=== PATIENT | male | born 1975 | race Caucasian/White ===

== ENCOUNTER 2017-11-09 06:24 | Emergency (ER) | payer SELFPAY ==
[~2017-11-09] VITALS: Ht 182.9 cm; Wt 78.5 kg
[2017-11-09 06:27] VITALS: BP 148/75; PULSE 92; RESP 18; TEMP 97.7; O2SAT 99
[2017-11-09] MEDS ORDERED: VANCOMYCIN INJ 200 ML IV ONE (07:15)
[2017-11-09] MEDS ORDERED: LIDOCAINE HCL 2% 50 ML VIAL INFIL ONE (07:15)
[2017-11-09 07:22] LABS: BASOPHIL % 0.5 % (0.0-2.0); EOSINOPHIL # 0.2 TH/MM3 (0-0.4); EOSINOPHIL % 1.7 % (0.0-4.0); HEMATOCRIT 42.3 % (39.0-51.0); LYMPH % 20.5 % (9.0-44.0); MEAN CELL VOLUME 83.5 FL (80.0-100.0); MEAN CORPUSCULAR HEMOGLOBIN 27.6 PG (27.0-34.0); MEAN PLATELET VOLUME 8.7 FL (7.0-11.0); MONO % 6.5 % (0.0-8.0); MONOCYTE # 0.6 TH/MM3 (0-0.9); NEUT % 70.8 % (16.0-70.0); PLATELET COUNT 261 TH/MM3 (150-450); RED BLOOD COUNT 5.06 MIL/MM3 (4.50-5.90); RED CELL DISTRIBUTION WIDTH 12.2 % (11.6-17.2); WHITE BLOOD COUNT 9.8 TH/MM3 (4.0-11.0)
[2017-11-09] MEDS ORDERED: VANCOMYCIN 1,000 MG/NS 250 ML IV ONE ×2 (07:30)
[2017-11-09 07:38] LABS: BLOOD UREA NITROGEN 17 MG/DL (7-18); CHLORIDE 98 MEQ/L (98-107); GLOMERULAR FILTRATION RATE 106 ML/MIN (>89); GLUCOSE,RANDOM 92 MG/DL (74-106); SODIUM (NA) 137 MEQ/L (136-145)
[2017-11-09 07:42] VITALS: BP 109/68; PULSE 81; RESP 16; O2SAT 98
[2017-11-09] MEDS ORDERED: LACTATED RINGER'S 1000 ML INJ 1,000 ML IV SCH (07:45)
[2017-11-09] MEDS ORDERED: ONDANSETRON HCL 4 MG/2 ML VIAL IV PUSH ONE (07:45)
[2017-11-09] MEDS ORDERED: MORPHINE SULFATE 2 MG/ML INJ IV PUSH ONE (07:45)
[2017-11-09] MEDS ORDERED: BACT800T5 PO (08:10)
--- NOTE | 2017-11-09 08:12 | PD ---
HPI . Abscess Chief Complaint: Skin Problem Time Seen by Provider: 07:12 Travel History International Travel<30 days: No Contact w/Intl Traveler<30days: No Traveled to known affect area: No History of Present Illness HPI This patient presents with the chief complaint of an abscess on his upper back. Onset was about 4 days ago. It is getting progressively worse. Pain was initially rated 8/10. There has been associated drainage. No fever. PFSH Past Medical History Medical History: Denies Significant Hx Diminished Hearing: No Influenza Vaccination: Yes ?: Not Past Surgical History Surgical History: No Previous Surgery Social History Alcohol Use: No Tobacco Use: Yes Substance Use: No Allergies-Medications (Allergen,Severity, Reaction): Coded Allergies: No Known Allergies (Unverified Allergy, Unknown, 11/09/17) Reported Meds & Prescriptions Reported Meds & Active Scripts Active No Active Prescriptions or Reported Medications Review of Systems Except as stated in HPI: all other systems reviewed are Neg General / Constitutional: No: Fever, Chills Skin: Positive Lesions Physical Exam Narrative GENERAL: Awake and alert and in no acute distress. SKIN: Warm and dry. Large abscess which appears to be over the spinous process of T1. There is some associated purulent drainage. The abscess is 3 cm in diameter. HEAD: Normocephalic/atraumatic. EYES: Pupils are equal. Extraocular movements are intact. NECK: Normal range of motion. CARDIOVASCULAR: Regular rate and rhythm. RESPIRATORY: Nonlabored respirations. MUSCULOSKELETAL: Atraumatic. NEUROLOGICAL: Nonfocal. PSYCHIATRIC: Appropriate mood and affect. Data Data Last Documented VS Vital Signs Date Time Temp Pulse Resp B/P (MAP) Pulse Ox O2 Delivery O2 Flow Rate FiO2 11/09/17 07:42 81 16 109/68 (82) 98 Room Air 11/09/17 06:27 97.7 Orders Orders Complete Blood Count With Diff (11/09/17 06:40) Blood Culture (11/09/17 06:40) Comprehensive Metabolic Panel (11/09/17 06:41) Wound Culture And Gram Stain (11/09/17 07:13) Lidocaine 2% Inj (Xylocaine 2% Inj) (11/09/17 07:15) Vancomycin Inj (Vancomycin Inj) (11/09/17 07:30) Lactated Ringer's 1000 Ml Inj (Lr 1000 M (11/09/17 07:45) Morphine Inj (Morphine Inj) (11/09/17 07:45) Ondansetron Inj (Zofran Inj) (11/09/17 07:45) Labs Laboratory Tests Test 11/09/17 06:54 White Blood Count 9.8 TH/MM3 Red Blood Count 5.06 MIL/MM3 Hemoglobin 14.0 GM/DL Hematocrit 42.3 % Mean Corpuscular Volume 83.5 FL Mean Corpuscular Hemoglobin 27.6 PG Mean Corpuscular Hemoglobin Concent 33.0 % Red Cell Distribution Width 12.2 % Platelet Count 261 TH/MM3 Mean Platelet Volume 8.7 FL Neutrophils (%) (Auto) 70.8 % Lymphocytes (%) (Auto) 20.5 % Monocytes (%) (Auto) 6.5 % Eosinophils (%) (Auto) 1.7 % Basophils (%) (Auto) 0.5 % Neutrophils # (Auto) 7.0 TH/MM3 Lymphocytes # (Auto) 2.0 TH/MM3 Monocytes # (Auto) 0.6 TH/MM3 Eosinophils # (Auto) 0.2 TH/MM3 Basophils # (Auto) 0.0 TH/MM3 CBC Comment DIFF FINAL Differential Comment Blood Urea Nitrogen 17 MG/DL Creatinine 0.80 MG/DL Random Glucose 92 MG/DL Sodium Level 137 MEQ/L Potassium Level 3.8 MEQ/L Chloride Level 98 MEQ/L Estimat Glomerular Filtration Rate 106 ML/MIN MDM Medical Decision Making Medical Screen Exam Complete: Yes Emergency Medical Condition: Yes Differential Diagnosis My differential diagnosis closed but is not limited to abscess, cyst, lipoma Narrative Course This patient presents with a painful abscess on his upper back over these final process of T1. CBC Diagram 11/09/17 06:54 The patient became vasovagal at the end of the procedure. He was subsequently treated with IV fluids, IV Zofran and IV morphine. The patient is receiving vancomycin 1 g IV here prior to discharge. He will be discharged on . Return in 2 days for recheck. It looks like he has a history of opiate abuse. Therefore, he is not being given a prescription for pain medication. Procedures Procedure Narrative INCISION AND DRAINAGE OF ABSCESS: The area was prepped and anesthetized with 2 % Xylocaine with a total number 16 mL was used to anesthetize the area properly. A number 11 scalpel was used to make a 2-cm incision across the area of the abscess. The abscess was drained. He was found to have a sebaceous cyst. The galindo a sebaceous cyst with dissection from the wound. Cultures were obtained. Quarter inch iodoform packing was placed in the wound. Sterile dressing applied. Patient advised to have packing removed in two days. Diagnosis Primary Impression: Abscess Patient Instructions: Abscess Incision and Drainage (DC), General Instructions , Narcotic given in the ED Additional Instructions: Return here in 2 days for removal of the packing and wound check. You may take [id number] Advil or Aleve as needed for pain. Med/Other Pt SpecificInfo: Prescription(s) given Scripts Sulfamethoxazole-Trimethoprim (Bactrim DS) 800-160 Mg Tab 1 TAB PO BID for Infection, #14 TAB 0 Refills Prov: Nguyen Myles MD 11/09/17 Disposition: 01 DISCHARGE HOME Condition: Stable Nguyen Myles MD Nov 09, 2017 08:12
[2017-11-09] MEDS ORDERED: SODIUM CHLOR 0.9% 1000 ML INJ 1,000 ML IV ONE (08:15)
[2017-11-09 08:52] LABS: CALCIUM 8.8 MG/DL (8.5-10.1)
[2017-11-09 08:58] LABS: ALT (GPT) 60 U/L (12-78); AST (GOT) 31 U/L (15-37); BICARBONATE 26.9 MEQ/L (21.0-32.0)
[2017-11-09 08:59] LABS: ALKALINE PHOSPHATASE 111 U/L (45-117); TOTAL BILIRUBIN ADULT 0.3 MG/DL (0.2-1.0); TOTAL PROTEIN 8.5 GM/DL (6.4-8.2)
[2017-11-09 10:11] VITALS: BP 123/76; PULSE 79; RESP 16; O2SAT 98
== END 2017-11-09 10:20 | disposition home or self-care (01) ==
LOC: PHED 06:24
DX: L02.212 Cutaneous abscess of back [any part, except buttock and flank] (principal); B95.61 Methicillin susceptible Staphylococcus aureus infection as the cause of diseases classified elsewhere
CPT/HCPCS: 10061; 80053; 85025; 86403; 87040; 87070; 87186; 87205; 96365; 96366; 96375; 99284; J2270; J2405; J3370; J7030; J7050; 10060